=== PATIENT | male | born 1965 | race Caucasian/White ===

== ENCOUNTER 2017-04-25 12:47 | Emergency (ER) | payer BC ==
[~2017-04-25] VITALS: Ht 175.3 cm; Wt 65.9 kg
[~2017-04-25 12:47] MED LIST: ALBUAER2 INH; ASMTWH INH; CLR10 PO; PRED10TA PO
[2017-04-25 12:56] VITALS: TEMP 36.8; Ht 175.3 cm; Wt 65.9 kg
[2017-04-25] MEDS ORDERED: XYLOCAINE 1%/SOD BICARB 20 ML VIAL INFIL ONE (13:15)
[2017-04-25] MEDS ORDERED: DIPHTHERIA/TETANUS/PERTUSSIS 0.5 ML SYR/VIAL IM. ONE (13:15)
--- NOTE | 2017-04-25 13:56 | EMERGENCY ROOM VISIT NOTE ---
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 The patient was at a customer's house and the dog bit his left upper arm. The patient's tetanus status is unknown. The dog's immunizations are up-to-date. The bleeding has stopped. REVIEW OF SYSTEMS: 6 system review was performed and was negative unless stated otherwise in history of present illness. PMH: The patient is healthy; asthma, tonsillectomy SOCIAL HISTORY: Patient lives alone. PHYSICAL EXAM: Vital Signs: Were reviewed Reviewed Nurse's notes. GENERAL: 51- year-old white male appears in no acute distress. MENTAL STATUS: Alert and oriented 3. LEFT UPPER ARM: There is a 1.5 cm long laceration on the anterior aspect of the upper arm. The edges are gaping widely apart. There is no foreign material in the wound and it looks clean. There is no active bleeding. No deep structures such as tendons or nerves are seen in the base of the wound. EMERGENCY DEPARTMENT COURSE: The patient was evaluated. Animal bite form was completed. The patient was given Adacel Wound Repair: Was performed by the PA student under my direct supervision. Complexity: Basic. Verbal consent was obtained after the risks and benefits were explained, including but not limited to bleeding, scarring, infection, pain, and bone/joint /nerve damage. The skin was prepped with betadine and a sterile field set. The wound was anesthetized with 1.0 ml of 1% buffered lidocaine. With direct pressure the bleeding subsided. Copious irrigation was performed using sterile saline. The wound was explored for foreign bodies and none found. Debridement was not performed. The wound edges were loosely approximated using 5-0 Ethilon with 2 simple interrupted sutures. Hemostasis and excellent approximation was achieved. Antibacterial ointment and a sterile dressing applied. Detailed wound care instructions and signs and symptoms of infection reviewed with the patient. No complications and the patient tolerated the procedure well. DIAGNOSIS: 1.5 cm left upper arm laceration secondary to dog bite DISCHARGE INSTRUCTIONS & TREATMENT: Take Augmentin as prescribed. Watch the area carefully for signs of infection such as redness, swelling, or tenderness. If any should occur, return to ER. The stitches should be taken out in 10 days. Read the wound care general instructions that you were given also. Bacitracin and a bandage on the wound for 3 days. Current/Historical Medications No Active Prescriptions or Reported Meds Allergies Coded Allergies: Fentanyl (Verified Allergy, Unknown, unknown, 04/25/17) Thiopental (Verified Allergy, Unknown, ., 04/25/17) Vital Signs Date Time Temp Pulse Resp B/P (MAP) Pulse Ox O2 Delivery O2 Flow Rate FiO2 04/25/17 12:56 36.8 89 20 131/81 99 Room Air Medications Administered Medications (Trade) Dose Ordered Sig/Maribel Route Start Time Stop Time Status Last Admin Dose Admin Diphtheria/ Pertussis/Tetanus Vacc (Adacel Inj) 0.5 ml ONCE ONCE IM. 04/25/17 13:15 04/25/17 13:16 DC 04/25/17 13:11 0.5 ML Departure Information Prescriptions No Active Prescriptions or Reported Meds Referrals Raymon Cooper M.D. (PCP) Patient Instructions My [facility]
[2017-04-25] MEDS ORDERED: AMOX875T PO (13:58)
[2017-04-25 14:10] VITALS: BP 124/77; PULSE 81; O2SAT 98
== END 2017-04-25 14:11 | disposition home or self-care (01) ==
LOC: C.EDB 12:48 → C.EDD 14:11
DX: S41.152A Open bite of left upper arm, initial encounter (principal); W54.0XXA Bitten by dog, initial encounter; Y92.89 Other specified places as the place of occurrence of the external cause; J45.909 Unspecified asthma, uncomplicated; Z23 Encounter for immunization

== ENCOUNTER 2017-12-18 17:05 | Emergency (ER) | payer BC ==
[~2017-12-18] VITALS: Ht 175.3 cm; Wt 64.8 kg
[2017-12-18 17:15] VITALS: TEMP 36.5; Ht 175.3 cm; Wt 64.8 kg
[2017-12-18] MEDS ORDERED: ALBUT/IPRATROP 3MG/0.5MG NEB 3 ML VIAL INH STA (18:18)
--- NOTE | 2017-12-18 18:34 | DIAGNOSTIC IMAGING REPORT ---
CHEST ONE VIEW PORTABLE CLINICAL HISTORY: Dizziness, shortness of breath. COMPARISON STUDY: October 2009 FINDINGS: The cardiac and mediastinal contours are normal. There is no evidence of focal pulmonary consolidation. There is no evidence of failure. No pleural effusions are visualized.[ IMPRESSION: No active disease in the chest. Electronically signed by: Karan Lopez M.D. 12/18/2017 6:32 PM Dictated Date/Time: 12/18/2017 6:32 PM
[2017-12-18 18:36] LABS: BASO % 0.3 %; BASO ABS # 0.02 K/uL (0-0.2); EOS % 2.8 %; EOS ABS # 0.18 K/uL (0-0.5); HEMATOCRIT 43.6 % (42-52); HEMOGLOBIN 14.9 g/dL (14.0-18.0); IG# 0.01 K/uL (0.00-0.02); LYMPH % 41.1 %; LYMPH ABS # 2.62 K/uL (1.2-3.4); MEAN CELL VOLUME 89.9 fL (80-100); MEAN CORPUSCULAR HEMOGLOBIN 30.7 pg (25-34); MEAN CORPUSCULAR HGB CONC 34.2 g/dl (32-36); MEAN PLATELET VOLUME 9.8 fL (7.4-10.4); MONO % 6.3 %; NEUT % 49.3 %; NEUT ABS # 3.14 K/uL (1.4-6.5); PLATELET COUNT 313 K/uL (130-400); RED CELL DISTRIBUTION WIDTH CV 12.8 % (11.5-14.5); RED CELL DISTRIBUTION WIDTH SD 41.9 fL (36.4-46.3); WHITE BLOOD COUNT 6.37 K/uL (4.8-10.8)
[2017-12-18] MEDS ORDERED: DIPH1LIQ2 PO (18:37)
[2017-12-18] MEDS ORDERED: VNTHFA/IN INH (18:37)
[2017-12-18] MEDS ORDERED: LORA-749 PO (18:38)
[2017-12-18 18:52] LABS: ALBUMIN 4.1 gm/dl (3.4-5.0); ALT/SGPT 37 U/L (12-78); AST/SGOT 22 U/L (15-37); BLOOD UREA NITROGEN 12 mg/dl (7-18); CALCIUM 9.1 mg/dl (8.5-10.1); CARBON DIOXIDE 29 mmol/L (21-32); CREATININE 0.88 mg/dl (0.60-1.40); GLUCOSE 89 mg/dl (70-99); POTASSIUM 3.4 mmol/L (3.5-5.1); SODIUM 137 mmol/L (136-145)
[2017-12-18 18:54] LABS: PTT PATIENT 28.8 SECONDS (21.0-31.0)
[2017-12-18 18:57] LABS: ALKALINE PHOSPHATASE 61 U/L (45-117); TOTAL PROTEIN 7.8 gm/dl (6.4-8.2)
[2017-12-18 19:21] VITALS: O2SAT 96
--- NOTE | 2017-12-18 20:23 | DIAGNOSTIC IMAGING REPORT ---
(CHEST FOR PE) ANGIO WITH CLINICAL HISTORY: 52 years-old Male presenting with ^+dd, chest pain. TECHNIQUE: Multidetector CT angiography of the chest was performed after administration of intravenous contrast. 3-D volumetric and/or maximum intensity projection (MIP) images were subsequently reconstructed for review. IV contrast: 99 mL of Optiray 320. A dose lowering technique was used consistent with the principles of ALARA (as low as reasonably achievable). COMPARISON: Chest x-ray performed earlier the same day. CT DOSE (mGy.cm): The estimated cumulative dose is 202.50 mGy.cm. 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 Pulmonary vasculature: The study is adequate for assessment of the pulmonary vascular tree. No filling defect within the pulmonary arteries to suggest embolus. Main pulmonary artery is not enlarged. No flattening of the interventricular septum. No intracardiac filling defect. No reflux of contrast into the hepatic veins. Remaining chest: On soft tissue windows, normal thyroid and thoracic inlet. No axillary, supraclavicular, hilar, or mediastinal lymphadenopathy. Normal aorta. Normal heart size. No pericardial or pleural effusion. Upper abdomen normal. On lung windows, no focal infiltrate or nodule. The inferior most lung bases are excluded from the [id number]. Airways patent. On bone windows, normal osseous structures. IMPRESSION: 1. No evidence of pulmonary embolus. No acute intrathoracic pathology. Electronically signed by: Jason Barbosa M.D. 12/18/2017 8:21 PM Dictated Date/Time: 12/18/2017 8:18 PM
[2017-12-18] MEDS ORDERED: PRED20TA PO (20:42)
[2017-12-18 21:15] VITALS: BP 127/68; PULSE 78; O2SAT 98
--- NOTE | 2017-12-19 00:23 | EMERGENCY ROOM VISIT NOTE ---
History Report prepared by Lona: Lynn Villarreal Under the Supervision of: Dr. Bret Shah D.O. First contact with patient: 17:48 Chief Complaint: SHORTNESS OF BREATH Stated Complaint: DIZZY, SOB- ASTHMA Nursing Triage Summary: Patient to ED via triage, reports hx of Asthma, states "Its been getting worse all week, I've been getting symptoms like I'm hyperventilating, like hands tingling, but without breathing fast. Before today its been helped by my rescue inhaler, but today they didn't work. I've been really dizzy and SOB." History of Present Illness The patient is a 52 year old male who presents to the Emergency Room with complaints of intermittent episodes of lightheadedness and shortness of breath beginning five days ago. The patient states he "accidently" ate soy, which he has an allergy to, on Friday, five days ago. After eating the soy, he started to have an episode of lightheadedness and shortness of breath. He reports using his inhaler which relieved his symptoms. He states his breathing was shallow and not like his normal "asthmatic breathing". Again on Friday, the patient had another episode of lightheadedness and shortness of breath when he was exposed to wood burning. He used his inhaler again after this episode which also relieved his symptoms. The patient believed his symptoms were a result of his history of asthma and allergies. The patient then had another episode of lightheaded that occurred today at 10 am, which was followed by shortness of breath with shallow breathing. He reports using his inhaler today with no relief. The patient denies any lightheadedness with changing of positions. He denies any no recent travel. The patient denies any history of blood clots or heart disease. The patient is not a smoker. The patient reports a history of high cholesterol that he does not have to take medication for. Pt denies headache, change in vision, fevers, chest pain, nausea, vomiting, diarrhea, pain with urination, and melena. Source of History: patient Onset: five days ago Position: other (generalized) Quality: other (shortness of breath and lightheadedness) Timing: intermittent Associated Symptoms: + SOB, No chest pain, No nausea Review of Systems See HPI for pertinent positives & negatives. A total of 10 systems reviewed and were otherwise negative. Past Medical & Surgical Medical Problems: (1) Asthma Family History Patient reports no known family medical history. Social History Smoking Status: Never Smoker Marital Status: Housing Status: lives with significant other Occupation Status: employed Current/Historical Medications Scheduled Loratadine & Pseudoephedrine (Claritin-D 24 Hour), 1 TAB PO HS Prednisone (Prednisone), 1 TAB PO DAILY Scheduled PRN Albuterol Hfa (Ventolin Hfa), 2-4 PUFFS INH Q6H PRN for Shortness of Breath Diphenhydramine Hcl (Benadryl Allergy Children), 5 ML PO HS PRN for Sleep Allergies Coded Allergies: Fentanyl (Verified Allergy, Unknown, unknown, 12/18/17) Soy Allergy (Unverified Allergy, Unknown, HIVES/SOB, 12/18/17) Thiopental (Verified Allergy, Unknown, ., 12/18/17) Physical Exam Vital Signs Date Time Temp Pulse Resp B/P (MAP) Pulse Ox O2 Delivery O2 Flow Rate FiO2 12/18/17 21:15 78 20 127/68 98 Room Air 12/18/17 21:14 75 20 127/68 99 12/18/17 19:48 88 20 127/78 100 Room Air 12/18/17 19:21 96 Room Air 12/18/17 18:35 96 Room Air 12/18/17 18:03 77 12/18/17 17:15 100 Room Air 12/18/17 17:15 36.5 90 20 137/88 100 Room Air Physical Exam GENERAL: Sitting up in bed, alert, well appearing, well nourished, no distress, non-toxic EYE EXAM: normal conjunctiva. OROPHARYNX: no exudate, no erythema, lips, buccal mucosa, and tongue normal and mucous membranes are moist NECK: supple, no nuchal rigidity, no adenopathy, non-tender LUNGS: Clear to auscultation. Normal chest wall mechanics HEART: no murmurs, S1 normal and S2 normal ABDOMEN: abdomen soft, non-tender, normo-active bowel sounds, no masses, no rebound or guarding. BACK: Back is symmetrical on inspection and there is no deformity, no midline tenderness, no CVA tenderness. SKIN: no rashes and no bruising UPPER EXTREMITIES: upper extremities are grossly normal. LOWER EXTREMITIES: No pitting edema. Calves equal bilaterally. NEURO EXAM: Normal sensorium, cranial nerves II-XII grossly intact, normal speech, no gross weakness of arms, no gross weakness of legs. Gross sensation intact. Medical Decision & Procedures ER Provider Diagnostic Interpretation: Radiology results as stated below per my review and the radiologist's interpretation: CHEST ONE VIEW PORTABLE FINDINGS: The cardiac and mediastinal contours are normal. There is no evidence of focal pulmonary consolidation. There is no evidence of failure. No pleural effusions are visualized.[ IMPRESSION: No active disease in the chest. Electronically signed by: Karan Lopez M.D. Laboratory Results 12/18/17 18:23 Red Blood Count 4.85, Mean Corpuscular Volume 89.9, Mean Corpuscular Hemoglobin 30.7, Mean Corpuscular Hemoglobin Concent 34.2, Mean Platelet Volume 9.8, Neutrophils (%) (Auto) 49.3, Lymphocytes (%) (Auto) 41.1, Monocytes (%) (Auto) 6.3, Eosinophils (%) (Auto) 2.8, Basophils (%) (Auto) 0.3, Neutrophils # (Auto) 3.14, Lymphocytes # (Auto) 2.62, Monocytes # (Auto) 0.40, Eosinophils # (Auto) 0.18, Basophils # (Auto) 0.02 12/18/17 18:23 Test 12/18/17 18:23 White Blood Count 6.37 K/uL (4.8-10.8) Red Blood Count 4.85 M/uL (4.7-6.1) Hemoglobin 14.9 g/dL (14.0-18.0) Hematocrit 43.6 % (42-52) Mean Corpuscular Volume 89.9 fL (80-100) Mean Corpuscular Hemoglobin 30.7 pg (25-34) Mean Corpuscular Hemoglobin Concent 34.2 g/dl (32-36) Platelet Count 313 K/uL (130-400) Mean Platelet Volume 9.8 fL (7.4-10.4) Neutrophils (%) (Auto) 49.3 % Lymphocytes (%) (Auto) 41.1 % Monocytes (%) (Auto) 6.3 % Eosinophils (%) (Auto) 2.8 % Basophils (%) (Auto) 0.3 % Neutrophils # (Auto) 3.14 K/uL (1.4-6.5) Lymphocytes # (Auto) 2.62 K/uL (1.2-3.4) Monocytes # (Auto) 0.40 K/uL (0.11-0.59) Eosinophils # (Auto) 0.18 K/uL (0-0.5) Basophils # (Auto) 0.02 K/uL (0-0.2) RDW Standard Deviation 41.9 fL (36.4-46.3) RDW Coefficient of Variation 12.8 % (11.5-14.5) Immature Granulocyte % (Auto) 0.2 % Immature Granulocyte # (Auto) 0.01 K/uL (0.00-0.02) Activated Partial Thromboplast Time 28.8 SECONDS (21.0-31.0) Partial Thromboplastin Ratio 1.1 D-Dimer 980 ug/L FEU (0-500) Anion Gap 5.0 mmol/L (3-11) Est Creatinine Clear Calc Drug Dose 91.0 ml/min Estimated GFR () 115.3 Estimated GFR (Non- 99.5 BUN/Creatinine Ratio 13.2 (10-20) Calcium Level 9.1 mg/dl (8.5-10.1) Total Bilirubin 0.3 mg/dl (0.2-1) Aspartate Amino Transf (AST/SGOT) 22 U/L (15-37) Alanine Aminotransferase (ALT/SGPT) 37 U/L (12-78) Alkaline Phosphatase 61 U/L (45-117) Troponin I < 0.015 ng/ml (0-0.045) Total Protein 7.8 gm/dl (6.4-8.2) Albumin 4.1 gm/dl (3.4-5.0) Globulin 3.7 gm/dl (2.5-4.0) Albumin/Globulin Ratio 1.1 (0.9-2) Laboratory results per my review. Medications Administered Medications (Trade) Dose Ordered Sig/Maribel Route Start Time Stop Time Status Last Admin Dose Admin Albuterol/ Ipratropium (Duoneb) 3 ml NOW STAT INH 12/18/17 18:18 12/18/17 18:19 DC 12/18/17 19:19 3 ML ECG Per My Interpretation Indication: SOB/dyspnea Rate (beats per minute): 74 Rhythm: sinus rhythm Findings: other (normal axis, no PVC) ED Course ED COURSE: Vital signs were reviewed and showed normal The patients medical record was reviewed The above diagnostic studies were performed and reviewed. ED treatments and interventions as stated above. 1809: The patient was evaluated in room C3. A complete history and physical examination was performed. 1933: The patient is feeling back to baseline. 2041: I updated the patient on his test results. 2050: Upon reevaluation, the patient is resting comfortably.I discussed my findings with the patient and he understands and agrees with the treatment plan. Based on the patients age, coexisting illnesses, exam and lab findings the decision to treat as an outpatient was made. The patient remained stable while under my care. The patient appeared well at the time of discharge. Medical Decision Differential diagnoses includes but is not limited to pneumonia, bronchitis, COPD/Asthma exacerbation, pneumothorax, pulmonary embolism, congestive heart failure, acute coronary syndrome Patient is a 52-year-old male who presents to ER for intermittent lightheadedness and shortness of breath. He had an episode on Friday where he suddenly broke out in hives. He uses inhaler and a completely resolved. Same symptoms on Friday legs exposed burning trash. He uses inhaler and again resolved. Once again he had the same symptoms today but did not get to his inhaler. No fevers. CBC all BMP, LFTs, bilirubin and troponin was negative. D -dimer was elevated. CT PE was performed and was negative. Chest x-ray was unremarkable. EKG was benign. Troponin was negative for symptoms that have been present for greater than 6 hours. Patient was given a neb treatment and complete resolution of symptoms. He is discharged follow-up as an outpatient. He declined steroids although I did give him a prescription in case he changed his mind. Discussed with Pt concerning signs and symptoms to watch out for. Pt was instructed to follow up with their PCP and discussed with the patient their option to return to the ED at anytime for persistent or worsening symptoms. The appropriate anticipatory guidance and out-patient management, including indications for return to the emergency department, were explained at length to the patient and understood. Medication Reconcilliation Current Medication List: was personally reviewed by me Blood Pressure Screening Patient's blood pressure: Normal blood pressure Impression Primary Impression: Asthma exacerbation Additional Impression: Shortness of breath Scribe Attestation The scribe's documentation has been prepared under my direction and personally reviewed by me in its entirety. I confirm that the note above accurately reflects all work, treatment, procedures, and medical decision making performed by me. Departure Information Dispostion Home / Self-Care Prescriptions Prednisone (Prednisone) 20 Mg Tab 1 TAB PO DAILY for 5 Days, #5 TAB Prov: Bret Shah, DO 12/18/17 Referrals Obed Villagomez MD (PCP) Forms HOME CARE DOCUMENTATION FORM, IMPORTANT VISIT INFORMATION Patient Instructions Asthma - [facility], [facility] Additional Instructions Please follow up with your primary care doctor with in the next 24 hours. Any worsening of your symptoms, please return to the ED immediately. This includes any fevers greater than 100.4, worsening pain, chest pain, shortness breath, persistent nausea, vomiting, unable to eat or drink, or any other concerning signs or symptoms from your standpoint. Please use your inhaler as needed. Problem Qualifiers Primary Impression: Asthma exacerbation Asthma severity: unspecified severity Asthma persistence: unspecified Qualified Codes: J45.901 - Unspecified asthma with (acute) exacerbation
== END 2017-12-18 21:15 | disposition home or self-care (01) ==
LOC: C.EDB 17:06 → C.EDC 21:15
DX: J45.901 Unspecified asthma with (acute) exacerbation (principal); R06.02 Shortness of breath; R42 Dizziness and giddiness